=== PATIENT | male | born 1965 | race Caucasian/White ===

== ENCOUNTER 2023-08-04 10:00 | Day surgery (SDC) | payer BC ==
[~2023-08-04 10:00] MED LIST: Midazolam 1 MG/ML 2 ML SDV ONE; Propofol 200 MG/20 ML SDV ONE; Sodium Chloride 0.9% 10 ML Syringe FLUSH PRN
[2023-08-04] MEDS: Lactated Ringers 1,000 ML IV SCH (10:37)
[2023-08-04 11:48] VITALS: PULSE 66
[2023-08-04 13:23] VITALS: BP 128/75
== END 2023-08-04 12:10 | disposition home or self-care (01) ==
LOC: LL.SDS 10:00
PROVIDERS: ATTEND Surgery
DX: Z12.11 Encounter for screening for malignant neoplasm of colon (principal); E78.00 Pure hypercholesterolemia, unspecified; I10 Essential (primary) hypertension; E03.9 Hypothyroidism, unspecified; F41.9 Anxiety disorder, unspecified; R94.5 Abnormal results of liver function studies; K74.60 Unspecified cirrhosis of liver; F10.90 Alcohol use, unspecified, uncomplicated; K82.8 Other specified diseases of gallbladder; M79.642 Pain in left hand; M79.641 Pain in right hand; G47.33 Obstructive sleep apnea (adult) (pediatric); Z86.010 Personal history of colon polyps; Z79.899 Other long term (current) drug therapy; Z79.890 Hormone replacement therapy
CPT/HCPCS: J2250; J2704; J7120